=== PATIENT | male | born 1965 | race African-American/Black ===

== ENCOUNTER 2024-02-03 18:08 | Emergency (ER) | payer OTHER ==
[~2024-02-03] VITALS: Ht 190.5 cm; Wt 127.0 kg
[2024-02-03 18:11] VITALS: TEMP 98.8; O2SAT 95
[2024-02-03 20:10] LABS: HEMATOCRIT. 37.1 % (42.0-52.0); HEMOGLOBIN. 12.3 g/dL (14.0-18.0); MEAN CORPUSCULAR HGB CONC 33.2 g/dL (31.0-37.0); MEAN CORPUSCULAR VOLUME 81.3 fL (80.0-94.0); MEAN PLATELET VOLUME 8.1 fl (7.4-10.4); PLATELET 182 x1000/uL (130-400); RED BLOOD CELL COUNT 4.56 mill/uL (4.7-6.1); RED CELL DISTRIBUTION WIDTH 14.1 % (11.6-14.6); WHITE BLOOD COUNT 11.5 x1000/uL (4.5-11.0)
[2024-02-03 20:12] LABS: DIFFERENTIAL COMMENT 1
[2024-02-03 20:17] LABS: CHLORIDE 97 mEq/L (98-107); POTASSIUM 4.5 mEq/L (3.5-5.1)
[2024-02-03 20:18] LABS: SODIUM 126 mEq/L (136-145)
[2024-02-03 20:19] LABS: CALCIUM 8.9 mg/dL (8.7-10.4); CARBON DIOXIDE 25 mEq/L (21-32)
[2024-02-03 20:24] LABS: CREATININE 2.1 mg/dL (0.6-1.3); GLUCOSE 330 mg/dL (70-105); UREA NITROGEN BLOOD 33 mg/dL (9-23)
[2024-02-03 20:33] LABS: TROPONIN I HIGH SENSITIVITY < 4 ng/L (3.0-53)
[2024-02-03] MEDS: KETOROLAC 15MG/ML VIAL IM ONE (21:30)
[2024-02-03 22:12] LABS: PLATELET ESTIMATE NORMAL
[2024-02-03 22:46] LABS: TROPONIN I HIGH SENSITIVITY < 4 ng/L (3.0-53)
[2024-02-04 00:25] VITALS: O2SAT 96
[2024-02-04 00:45] VITALS: BP 116/66; PULSE 95; RESP 16
[2024-02-04] MEDS: KETOROLAC 15MG/ML VIAL IM NR (00:45)
== END 2024-02-04 01:03 | disposition home or self-care (01) ==
LOC: ER 18:08
DX: R55 Syncope and collapse (principal); B34.9 Viral infection, unspecified; E11.9 Type 2 diabetes mellitus without complications; I10 Essential (primary) hypertension
CPT/HCPCS: 99285; 70450; 71045; 80048; 83880; 83605; 85025; 84484; 36415; 93005; 96372 ×2; J1885